=== PATIENT | female | born 1990 | race Asian ===

== ENCOUNTER 2017-02-24 10:15 | Outpatient (CLI) | payer OTHER ==
[~2017-02-24] VITALS: Ht 157.5 cm; Wt 66.4 kg
[~2017-02-24 10:15] MED LIST: FOLIC ACID 11 MG/TA1 PO; IBU600 MG PO; IRON325 M2 PO; OSCAL 500 TAB500 MG PO; PERCOCET 325 MG1 TA2 PO
[2017-02-24 10:23] VITALS: BP 110/58; PULSE 83; TEMP 97.7
[2017-02-24] MEDS ORDERED: CALCIUM CARBON650 M2 (10:28)
[2017-02-24] MEDS ORDERED: PRENATAL1 TA7 PO (10:28)
[2017-02-24] MEDS ORDERED: FOLIC ACID0.4 MG PO (10:28)
[2017-02-24 11:30] VITALS: BP 103/68; PULSE 85
== END 2017-02-24 11:45 | disposition home or self-care (01) ==
LOC: LDRO 10:15
DX: Z34.83 Encounter for supervision of other normal pregnancy, third trimester (principal); Z3A.39 39 weeks gestation of pregnancy

== ENCOUNTER 2017-02-25 07:07 | Inpatient (IN) | payer OTHER ==
[2017-02-25] VITALS (19 sets, daily range): BP systolic 96–115; BP diastolic 51–67; PULSE 77–106; TEMP 97.7–98.5
[~2017-02-25] VITALS: Ht 157.5 cm; Wt 66.4 kg
[~2017-02-25 07:07] MED LIST changes: +CALCIUM CARBON650 M2; +FOLIC ACID0.4 MG PO; +PRENATAL1 TA7 PO
[2017-02-25 07:46] LABS: MEAN CELL VOLUME 92 fl (80.0-100.0); MEAN CORPUSCULAR HEMOGLOBIN 31 pg (27.0-31.0); MEAN CORPUSCULAR HGB CONC 34 g/dl (33.0-37.0); MEAN PLATELET VOLUME 9.3 fl (7.4-10.4); PLATELET COUNT 217 K/mm3 (130-400); RED BLOOD COUNT 3.82 M/mm3 (4.10-5.30); REDCELL DISTRIBUTION WIDTH-CV 13.2 % (11.5-14.5)
[2017-02-25 09:08] LABS: BAND 55 % (0-10); LYMPHOCYTE 14 % (20.0-51.0); NEUTROPHILS 30 % (42.0-75.2); PLATELET ESTIMATE NORMAL (NORMAL)
[2017-02-26 00:25] VITALS: BP 102/61; PULSE 85; TEMP 98.1
[2017-02-26 04:10] VITALS: BP 91/56; PULSE 77; TEMP 98
[2017-02-26 07:16] LABS: HEMATOCRIT 31.9 % (37.0-47.0); HEMOGLOBIN 10.8 g/dl (12.5-16.0)
[2017-02-26 08:15] VITALS: BP 106/60; PULSE 86; TEMP 97.5
[2017-02-26 16:25] VITALS: BP 107/38; PULSE 99; TEMP 97.7
[2017-02-26 20:00] VITALS: BP 116/72; PULSE 100; TEMP 98.2
[2017-02-27 07:00] VITALS: BP 113/78; PULSE 87; TEMP 97.8
[2017-02-27] MEDS ORDERED: IBU600 MG PO (08:49)
== END 2017-02-27 12:30 | disposition home or self-care (01) | DRG 775 ==
LOC: LDRO 07:07 → LDR 07:22 → OB 07:22
PROVIDERS: Obstetrics & Gynecology
PROC: 10E0XZZ Delivery of Products of Conception, External Approach (ICD-10-PCS; principal; 2017-02-25)
PROC: 0KQM0ZZ Repair Perineum Muscle, Open Approach (ICD-10-PCS; 2017-02-25)
DX: O36.5930 Maternal care for other known or suspected poor fetal growth, third trimester, not applicable or unspecified (principal); O70.1 Second degree perineal laceration during delivery; O99.824 Streptococcus B carrier state complicating childbirth; O99.02 Anemia complicating childbirth; D64.9 Anemia, unspecified; Z3A.39 39 weeks gestation of pregnancy; Z37.0 Single live birth
CPT/HCPCS: J2540; J2590; J7120